=== PATIENT | female | born 1995 | race Two or more races ===

== ENCOUNTER 2016-07-25 11:46 | Emergency (ER) | payer MEDICAID ==
[~2016-07-25] VITALS: Ht 157.5 cm; Wt 63.5 kg
[2016-07-25] MEDS ORDERED: IV NS 0.9% 1,000 ML BAG IV ONE (12:00)
[2016-07-25] MEDS ORDERED: IV SET PRIMARY 1 EA INFUS.SET MC ONE (12:05)
[2016-07-25] MEDS ORDERED: IV NS 0.9% 1,000 ML ONE (12:05)
[2016-07-25 12:16] LABS: BASOPHILS % (AUTO) 0.2 % (0.0-2.0); DIFF TOTAL % 100 %; EOSINOPHILS # (AUTO) 0.1 /CMM (0.0-0.7); EOSINOPHILS % (AUTO) 0.8 % (0.0-6.0); HEMATOCRIT 29 % (33-45); HEMOGLOBIN 10.1 g/dL (11.5-14.8); LYMPHOCYTES # (AUTO) 1.5 /CMM (0.8-4.8); LYMPHOCYTES % (AUTO) 22.4 % (20.0-44.0); MEAN CORPUSCULAR HEMOGLOBIN 29 PG (26.0-33.0); MEAN CORPUSCULAR HGB CONC 35 g/dl (31.0-36.0); MEAN CORPUSCULAR VOLUME 83 fL (82-100); MONOCYTES # (AUTO) 0.5 /CMM (0.1-1.30); MONOCYTES % (AUTO) 7.2 % (2.0-12.0); NEUTROPHILS # (AUTO) 4.4 /CMM (1.8-8.9); NEUTROPHILS % (AUTO) 69.4 % (43.0-81.0); PLATELET COUNT (AUTO) 324 /CMM (150-450); RED BLOOD CELL COUNT(AUTO) 3.54 MIL/uL (4.0-5.2); WHITE BLOOD COUNT (AUTO) 6.5 K/uL (4.3-11.0)
[2016-07-25 12:31] LABS: CALCIUM, SERUM 8.5 mg/dL (8.5-10.1); CREATININE 0.5 mg/dL (0.6-1.3); POTASSIUM 3.7 mmol/L (3.5-5.1)
[2016-07-25 16:15] VITALS: BP 132/66
== END 2016-07-25 16:16 | disposition home or self-care (01) ==
LOC: ER 11:49
DX: R55 Syncope and collapse (principal)
CPT/HCPCS: 36415; 76856; 80048; 84702; 85025; 93005; 99285; A4606; J7030; Z7610